=== PATIENT | male | born 1965 | race Caucasian/White ===

== ENCOUNTER 2016-08-07 | Emergency (ER) | payer BC ==
[~2016-08-07] VITALS: Ht 180.3 cm; Wt 93.2 kg
[2016-08-07 00:02] VITALS: TEMP 98.6
[2016-08-07 00:53] LABS: BASO # 0.1 (0.0-0.2); BASO % 0.4 % (0.0-2.0); EOS # 0.1 (0.0-0.7); EOS % 0.6 % (0-4.0); GRAN # 8.9 (1.4-6.5); GRAN % 76.6 % (42.2-75.2); HEMATOCRIT 45.8 % (42.0-52.0); HEMOGLOBIN 16.1 g/dl (13.5-18.0); LYMPH # 1.9 (1.2-3.4); LYMPH % 16.4 % (20.0-51.0); MEAN CELL VOLUME 87 fl (80.0-100.0); MEAN CORPUSCULAR HEMOGLOBIN 30 pg (27.0-31.0); MEAN CORPUSCULAR HGB CONC 35 g/dl (33.0-37.0); MEAN PLATELET VOLUME 9.9 fl (7.4-10.4); MONO # 0.7 (0.1-0.6); MONO % 5.7 % (1.7-9.3); PLATELET COUNT 284 K/mm3 (130-400); RED BLOOD COUNT 5.29 M/mm3 (4.20-5.60); REDCELL DISTRIBUTION WIDTH-CV 13.7 % (11.5-14.5); WHITE BLOOD COUNT 11.6 K/mm3 (4.8-10.8)
[2016-08-07 01:06] LABS: ADJUSTED CALCIUM 9.5 mg/dL (8.4-10.2); ALANINE AMINOTRANSFERASE 42 U/L (21-72); ALBUMIN 4.8 gm/dL (3.5-5.0); ALKALINE PHOSPHATASE 103 U/L (50-136); ANION GAP 14 mmol/L (7-16); BILIRUBIN,TOTAL 1.8 mg/dL (0.0-1.0); BLOOD UREA NITROGEN 16 mg/dL (9-20); CALCIUM 10.1 mg/dL (8.4-10.2); CARBON DIOXIDE 26 mmol/L (22-30); CHLORIDE 103 mmol/L (98-107); CREATININE, serum 0.98 mg/dL (0.66-1.25); GLUCOSE 154 mg/dL (74-106); POTASSIUM 4.1 mmol/L (3.4-5.0); SODIUM 144 mmol/L (137-145); TOTAL PROTEIN 8.6 gm/dL (6.4-8.2)
[2016-08-07 02:14] LABS: TROPONIN-I < 0.012 ng/mL (0.000-0.034)
[2016-08-07] MEDS ORDERED: ZOFRAN ODT4 MG PO (02:25)
[2016-08-07 02:40] VITALS: BP 145/88; PULSE 86
== END 2016-08-07 02:41 | disposition home or self-care (01) ==
LOC: COL.ER
PROVIDERS: Emergency Medicine
DX: R11.10 Vomiting, unspecified (principal); R13.10 Dysphagia, unspecified
CPT/HCPCS: C9113; J2765; J7030

== ENCOUNTER 2020-09-01 18:35 | Inpatient (IN) | payer OTHER ==
[~2020-09-01] VITALS: Ht 180.3 cm; Wt 87.7 kg
[~2020-09-01 18:35] MED LIST: ZOFRAN ODT4 MG PO
[2020-09-01 19:13] LABS: BASO # 0.1 (0.0-0.2); BASO % 0.4 % (0.0-2.0); EOS # 0.1 (0.0-0.7); EOS % 0.8 % (0-4.0); GRAN # 10.3 (1.4-6.5); GRAN % 83.3 % (42.2-75.2); HEMATOCRIT 48.3 % (42.0-52.0); HEMOGLOBIN 16.6 g/dl (13.5-18.0); LYMPH # 1.3 (1.2-3.4); LYMPH % 10.5 % (20.0-51.0); MEAN CELL VOLUME 86 fl (80.0-100.0); MEAN CORPUSCULAR HEMOGLOBIN 29 pg (27.0-31.0); MEAN CORPUSCULAR HGB CONC 34 g/dl (33.0-37.0); MONO # 0.6 (0.1-0.6); MONO % 4.8 % (1.7-9.3); PLATELET COUNT 303 K/mm3 (130-400); RED BLOOD COUNT 5.65 M/mm3 (4.20-5.60); REDCELL DISTRIBUTION WIDTH-CV 13.4 % (11.5-14.5)
[2020-09-01 19:34] LABS: ALBUMIN 4.5 gm/dL (3.5-5.0); BILIRUBIN,TOTAL 1.4 mg/dL (0.0-1.0); CALCIUM 9.7 mg/dL (8.4-10.2); CREATININE, serum 0.9 (0.66-1.25); POTASSIUM 3.9 mmol/L (3.4-5.0); TOTAL PROTEIN 8.3 gm/dL (6.4-8.2)
[2020-09-01] MEDS ORDERED: GLUCOPHAGE500 MG/TAB PO (21:32)
[2020-09-01] MEDS ORDERED: LIPITOR 10MG10 MG PO (21:32)
[2020-09-01] MEDS ORDERED: ALTACE 2.5MG T2.5 MG PO (21:33)
[2020-09-01] MEDS ORDERED: ASPIRIN 81M81 MG/TA2 PO (21:33)
[2020-09-01 23:01] VITALS: BP 147/78; PULSE 91; TEMP 97.6
--- NOTE | 2020-09-01 23:28 | NUR ---
Pt. laying in bed. Pt. is A&OX3, assessment complete. INT to lt. ac patent. Pt. denies pain or other needs, call light within reach.
[2020-09-02 03:43] VITALS: BP 138/73; PULSE 81; TEMP 98
[2020-09-02 06:58] LABS: BASO % 0.4 % (0.0-2.0); EOS # 0.1 (0.0-0.7); EOS % 1.4 % (0-4.0); GRAN # 5.8 (1.4-6.5); GRAN % 77.7 % (42.2-75.2); HEMATOCRIT 43.2 % (42.0-52.0); LYMPH # 0.9 (1.2-3.4); LYMPH % 12.2 % (20.0-51.0); MEAN CELL VOLUME 89 fl (80.0-100.0); MEAN CORPUSCULAR HEMOGLOBIN 30 pg (27.0-31.0); MEAN CORPUSCULAR HGB CONC 33 g/dl (33.0-37.0); MEAN PLATELET VOLUME 9.9 fl (7.4-10.4); MONO # 0.6 (0.1-0.6); PLATELET COUNT 249 K/mm3 (130-400); RED BLOOD COUNT 4.86 M/mm3 (4.20-5.60); REDCELL DISTRIBUTION WIDTH-CV 13.4 % (11.5-14.5)
[2020-09-02 07:03] LABS: HEMOGLOBIN 14.4 g/dl (13.5-18.0)
[2020-09-02 07:12] LABS: ALBUMIN 3.7 gm/dL (3.5-5.0); BILIRUBIN,TOTAL 1.5 mg/dL (0.0-1.0); CALCIUM 8.5 mg/dL (8.4-10.2); CREATININE, serum 0.75 (0.66-1.25); TOTAL PROTEIN 6.6 gm/dL (6.4-8.2)
[2020-09-02 07:30] VITALS: BP 137/71; PULSE 76; TEMP 97.8
--- NOTE | 2020-09-02 08:00 | NUR ---
PATIENT IS A&O. PLASTIC CNC MACHINE OPERATOR REPORTED NO OUTPUT FROM NG TILL SHE MANIPUTED THE TUBING AND GOT 150 CC OF BROWN GASTRIC DRAINAGE. PATIENT REPORTS N/V IS BETTER BUT IS C/O HEARTBURN. PLASTIC CNC MACHINE OPERATOR GAVE IV PROTONIX. CHANGED OUT NG SUCTION, PATIENT NOW HAD ANOTHER 100CC OUT OF BROWN-GREEN GASTRIC DRAINAGE. PATIENT DENIES C/O N/V AND ALSO STATES HEART BURN IS BETTER. NG TO LIS. ABD IS DISTENDED, SOFT AND WITH POSITIVE BOWL SOUNDS. PASSING GAS. PATIENT REPORTS SOME DIARRHEA TUESDAY. LAST FORMED STOOL WAS TUESDAY. NPO. HEAD TO TOE ASSESSMENT COMPLETE. IV FLUIDS INFUSING VIA PUMP INTO RIGHT AC IV. NO OTHER NEEDS AT THIS TIME. CALL LIGHT IN REACH.
--- NOTE | 2020-09-02 09:25 | NUR ---
ROUNDED. CLAMPED NG AND STARTING ON CLEAR LIQUID DIET. NO C/O N/V. GAVE PRN ZOFRAN AND SCHEDULED STOOL SOFTNER. WILL MONITOR.
--- NOTE | 2020-09-02 09:33 | NUR ---
SW met with the patient to discuss discharge plan. The patient lives in [place] with his , Katharina (ph#[phone]). He reports independence with ADLs and does not have any DME. The patient's PCP is Dr. Jules Delarosa and he receives his medications from [id number]. He reports no difficulties obtaining his meds. The patient does not have a DPOA-HC and he was not interested in completing one at this time. The patient plans to return home with his upon discharge. No additional needs at this time.
--- NOTE | 2020-09-02 10:35 | NUR ---
Initial visit; Patient thanked Compliance Monitor for looking in on him and offering Prayer and God's blessings.
[2020-09-02 11:32] VITALS: BP 166/73; PULSE 84; TEMP 98.2
--- NOTE | 2020-09-02 16:00 | NUR ---
PATIENT AMBULATING IN HALLS WITH . TOLERATING ACTIVITY WELL. NO C/O N/V. TOLERATING NG CLAMPED WELL.
[2020-09-02 16:20] VITALS: BP 157/80; PULSE 90; TEMP 98.3
--- NOTE | 2020-09-02 17:50 | NUR ---
FRENCH'Shelley KASPER PER ORDERS. ADVANCED DIET PER . PATIENT DOING WELL
[2020-09-02 20:25] VITALS: BP 159/88; PULSE 100; TEMP 98.1
--- NOTE | 2020-09-02 21:00 | NUR ---
Patient doing well. No pain or nausea. Patient anbulating in his room independently. Patient had a bowel movement. No other needs at this time.
[2020-09-03 00:05] VITALS: BP 142/84; PULSE 88; TEMP 98.5
[2020-09-03 05:43] VITALS: BP 132/72; PULSE 91; TEMP 97.8
--- NOTE | 2020-09-03 07:30 | NUR ---
Pt resting with eyes closed and even non labored breathing
--- NOTE | 2020-09-03 09:16 | NUR ---
Pt is doing well. He is having some liquid stool. No pain complaints and over all reports feeling much better. He is independent and ambulating with no problems. Hoping to go home today. Tolerated a general diet for breakfast. Will continue to monitor
[2020-09-03 09:22] VITALS: BP 148/74; PULSE 88; TEMP 98.7
[2020-09-03 10:33] LABS: BASO % 0.4 % (0.0-2.0); EOS # 0.1 (0.0-0.7); EOS % 1.5 % (0-4.0); GRAN # 4.9 (1.4-6.5); GRAN % 72.7 % (42.2-75.2); HEMATOCRIT 43.6 % (42.0-52.0); HEMOGLOBIN 14.8 g/dl (13.5-18.0); LYMPH # 1.1 (1.2-3.4); LYMPH % 15.7 % (20.0-51.0); MEAN CELL VOLUME 88 fl (80.0-100.0); MEAN CORPUSCULAR HEMOGLOBIN 30 pg (27.0-31.0); MEAN CORPUSCULAR HGB CONC 34 g/dl (33.0-37.0); MEAN PLATELET VOLUME 9.2 fl (7.4-10.4); MONO # 0.7 (0.1-0.6); MONO % 9.6 % (1.7-9.3); PLATELET COUNT 255 K/mm3 (130-400); RED BLOOD COUNT 4.97 M/mm3 (4.20-5.60); REDCELL DISTRIBUTION WIDTH-CV 13.4 % (11.5-14.5)
--- NOTE | 2020-09-03 10:42 | NUR ---
Follow-up visit; Patient thanked Brick Shader for looking in on him again this morning and offering God's blessings.
[2020-09-03 10:48] LABS: BILIRUBIN,TOTAL 1.1 mg/dL (0.0-1.0); CALCIUM 8.9 mg/dL (8.4-10.2); CREATININE, serum 0.82 (0.66-1.25); POTASSIUM 4.1 mmol/L (3.4-5.0)
[2020-09-03 11:22] VITALS: BP 165/81; PULSE 85; TEMP 98.1
--- NOTE | 2020-09-03 12:02 | NUR ---
Pt still doing well. He is sitting up eating lunch. No complaints of pain, denies needs, will continue to monitor.
--- NOTE | 2020-09-03 13:13 | NUR ---
Reviewed discharge instructions with patient. INT removed from left AC. Pt continues to do well and has tolerated lunch with no problems. Offered him more to eat as he is now on a low fiber diet. Pt reports feeling okay an will wait until he gets home.
--- NOTE | 2020-09-03 13:45 | NUR ---
Pt escorted out at this time
== END 2020-09-03 13:52 | disposition home or self-care (01) | DRG 390 ==
LOC: COL.ER 18:35 → SURG 20:51
PROVIDERS: Family Medicine; ADMIT Surgery
DX: K56.600 Partial intestinal obstruction, unspecified as to cause (principal); E11.9 Type 2 diabetes mellitus without complications; Z79.84 Long term (current) use of oral hypoglycemic drugs; Z79.82 Long term (current) use of aspirin
CPT/HCPCS: A9284; C9113; J1956; J2405; J7030; Q9967

== ENCOUNTER 2021-08-25 08:52 | Day surgery (SDC) | payer OTHER ==
[2021-08-25] VITALS (15 sets, daily range): BP systolic 112–143; BP diastolic 46–97; PULSE 56–127; TEMP 97.6–98.7
[~2021-08-25] VITALS: Ht 180.3 cm; Wt 82.7 kg
[~2021-08-25 08:52] MED LIST changes: +ALTACE 2.5MG T2.5 MG PO; +ASPIRIN 81M81 MG/TA2 PO; +GLUCOPHAGE500 MG/TAB PO; +LIPITOR 10MG10 MG PO
--- NOTE | 2021-08-25 18:50 | NUR ---
THIS PATIENT HAS HAD A VERY EVENTFUL DAY. THIS RN AND LOLY WILSON HAVE IRRIGATED THE PATIENT'S BLADDER D/T CLOTTING X5. LOLY WILSON CONTACTED DR. NEFF WHO STATES THAT IF HE CONTINUES TO HAVE ISSUES, MAKE HIM NPO FOR RETURN TO THE OR. THE PATIENT DID HAVE 20+ CLOTS EVACUATED THROUGHOUT THE SHIFT. CBI WAS RUNNING WIDE OPEN AND THE PATIENT CONTINUED TO HAVE CLOTTING ISSUES. AT THE END OF THE SHIFT, DR. MAXWELL DID SEE THE PATIENT, AND PREPPED HIM FOR CYSTOSCOPY WITH CLOT EVACUATION AND PULVERIZATION OF BLEEDERS. THE PATIENT SIGNED CONSENT WITH STRINGING MACHINE TENDER RN WHO PREPARED HIM FOR SURGERY. THE PATIENT LEFT THE FLOOR WITH LOLY COLIN FROM [facility]. NO OTHER CONCERNS.
--- NOTE | 2021-08-25 19:00 | NUR ---
Dr Coronado at bedside.
--- NOTE | 2021-08-25 19:40 | NUR ---
To OR via bed at this time.
--- NOTE | 2021-08-25 21:25 | NUR ---
To room 330 via bed from PACU. A&Ox4. Denies pain/nausea/shortness of breath. IV to right forearm-post op fluids initiated. Post op vitals initiated-VS WNL. CBI running at a fast rate-output very light pink. Provided dinner tray. HS meds given. Plan of care discussed for frequent monitoring of output/CBI. Verbalizes understanding. Denies questions/concerns. Call light in reach. Will monitor.
--- NOTE | 2021-08-25 22:44 | NUR ---
RT notified of IS order for patient and has not received one yet.
--- NOTE | 2021-08-25 22:49 | NUR ---
Resting in bed. Tolerating diet. Denies pain/nausea/shortness of breath. VS remain stable. CBI running at a moderate rate-light pink return. Denies current needs. Call light in reach. Will monitor.
[2021-08-26 00:10] VITALS: BP 102/56; PULSE 89; TEMP 98
[2021-08-26 01:10] VITALS: BP 111/58; PULSE 81; TEMP 98
[2021-08-26 03:01] VITALS: BP 99/58; PULSE 80; TEMP 98
--- NOTE | 2021-08-26 03:19 | NUR ---
Post op vitals complete and WNL. CBI continues to run at a moderate rate with light pink output. Denies pain/nausea/shortness of breath. 1/2 NS@75ml/hr. Denies current needs. Call light in reach. Will monitor.
--- NOTE | 2021-08-26 05:52 | NUR ---
Rested well post cysto and clot removal. CBI running at a moderate rate with light pink output. Denies pain/nausea/shortness of breath. VS remained stable. 1/2NS@75ml/hr to right forearm IV infusing without difficulty. Tolerated a general diet. SCDs bilat. Denies current questions/concerns. Call light in reach. Will monitor.
[2021-08-26 08:00] VITALS: BP 131/72; PULSE 94; TEMP 98.2
--- NOTE | 2021-08-26 09:13 | NUR ---
SW met with the patient to discuss discharge plan. The patient lives in [place] with his , Katharina (ph#[phone]). He reports independence with ADLs and does not have any DME. The patient's PCP is Dr. Jules Delarosa and he receives his medications from [facility]. The patient does not have a DPOA-HC and he was not interested in completing one at this time. The patient plans on returning home with his upon discharge. No additional needs at this time. *Discharge plan: home with *
[2021-08-26 11:46] VITALS: BP 129/55; PULSE 97; TEMP 98.4
[2021-08-26 15:31] VITALS: BP 132/68; PULSE 96; TEMP 97.4
--- NOTE | 2021-08-26 16:31 | NUR ---
REVIEWED DISCHARGE INSTRUCTIONS WITH PT AND . QUESTIONS SOLICITED AND ANSWERED. PT LEFT UNIT AMBULATORY.
== END 2021-08-26 16:33 | disposition home or self-care (01) ==
LOC: SDCO 08:52 → SURG 15:24 → SDCO 08-26 16:33
DX: N40.1 Benign prostatic hyperplasia with lower urinary tract symptoms (principal); R33.9 Retention of urine, unspecified; R35.0 Frequency of micturition; R35.1 Nocturia; N32.89 Other specified disorders of bladder; N39.44 Nocturnal enuresis; I10 Essential (primary) hypertension; E78.5 Hyperlipidemia, unspecified; E11.9 Type 2 diabetes mellitus without complications; E78.00 Pure hypercholesterolemia, unspecified; Z79.899 Other long term (current) drug therapy; Z98.890 Other specified postprocedural states
CPT/HCPCS: OP; J0690; J1100; J1170; J1885; J2250; J2405; J2704; J3010; J3480; J7120